=== PATIENT | female | born 1980 | race Caucasian/White ===

== ENCOUNTER 2018-08-10 21:34 | Emergency (ER) | payer OTHER, MEDICAID ==
[~2018-08-10] VITALS: Ht 167.6 cm; Wt 77.1 kg
[2018-08-10 22:24] LABS: URINE BILIRUBIN NEGATIVE (Negative); URINE BLOOD NEGATIVE (Negative); URINE CLARITY CLEAR; URINE COLOR YELLOW; URINE GLUCOSE-RANDOM NEGATIVE (Negative); URINE KETONES NEGATIVE (Negative); URINE LEUKOCYTES-REFLEX NEGATIVE (Negative); URINE NITRITE-REFLEX NEGATIVE (Negative); URINE PROTEIN NEGATIVE (Negative); URINE SPECIFIC GRAVITY >= 1.030 (1.005-1.030); URINE UROBILINOGEN 0.2 E.U./dl (0.2-1.0)
[2018-08-10] MEDS ORDERED: GABAPENTIN 100100 MG PO (22:33)
[2018-08-10 22:50] VITALS: BP 126/83
== END 2018-08-10 22:51 | disposition home or self-care (01) ==
LOC: M.ERS 21:34
PROVIDERS: Personal Emergency Response Attendant
DX: R20.2 Paresthesia of skin (principal); Z88.8 Allergy status to other drugs, medicaments and biological substances

== ENCOUNTER 2018-09-23 21:56 | Emergency (ER) | payer OTHER, MEDICAID ==
[~2018-09-23] VITALS: Ht 167.6 cm; Wt 77.1 kg
[~2018-09-23 21:56] MED LIST: GABAPENTIN 100100 MG PO
[2018-09-23] MEDS ORDERED: ZPAK PO (22:48)
[2018-09-23] MEDS ORDERED: BENZONATATE200 MG PO (22:48)
[2018-09-23 23:03] VITALS: BP 118/80
== END 2018-09-23 23:03 | disposition home or self-care (01) ==
LOC: M.ERS 21:56
DX: J40 Bronchitis, not specified as acute or chronic (principal); Z88.1 Allergy status to other antibiotic agents; N80.9 Endometriosis, unspecified; Z88.6 Allergy status to analgesic agent; Z88.7 Allergy status to serum and vaccine

== ENCOUNTER 2018-10-15 04:21 | Emergency (ER) | payer OTHER, MEDICAID ==
[~2018-10-15] VITALS: Ht 167.6 cm; Wt 90.7 kg
[~2018-10-15 04:21] MED LIST changes: +BENZONATATE200 MG PO; +ZPAK PO
[2018-10-15 04:57] LABS: ABSOLUTE BASOPHILS 0.1 thou/uL (0.0-0.2); ABSOLUTE EOSINOPHILS 0.1 thou/uL (0.0-0.7); ABSOLUTE LYMPHOCYTES 1.7 thou/uL (0.8-5.3); ABSOLUTE MONOCYTES 0.7 thou/uL (0.0-1.2); ABSOLUTE NEUTROPHILS 2.7 thou/uL (1.6-8.1); BASOPHILS 1.8 %; LYMPHOCYTES 32.9 %; MCH 18.3 pg (26.0-34.0); MCHC 30.1 g/dL (28.0-37.0); MCV 60.9 fL (80.0-100.0); MPV 8.4 fl. (7.2-11.1); NUCLEATED RBCS 0 /100WBC; PLATELET COUNT* 281 thou/uL (150-400); POLYS 50.3 %; RBC 3.16 mil/uL (4.20-5.00); RDW-CV 22.4 % (10.5-14.5); WBC 5.3 thou/uL (4.0-11.0)
[2018-10-15 05:04] LABS: HEMATOCRIT 19.2 % (37.0-47.0); HEMOGLOBIN 5.8 gm/dL (12.0-15.0)
[2018-10-15 05:09] LABS: CALCIUM 8.8 mg/dL (8.5-10.1); CREATININE 0.6 mg/dL (0.6-1.3); POTASSIUM 3.1 mmol/L (3.5-5.1)
[2018-10-15 05:20] LABS: ALBUMIN 3.7 g/dL (3.4-5.0); TOTAL BILIRUBIN 0.5 mg/dL (<0.1-1.0); TOTAL PROTEIN 7.1 g/dL (6.4-8.2)
[2018-10-15 05:34] LABS: ANISOCYTOSIS 2+; HYPOCHROMASIA 3+; MICROCYTES 3+; PLATELET ESTIMATE ADEQUATE; POLYCHROMASIA 1+
[2018-10-15] MEDS ORDERED: PREDNISONE 20 M20 M1 PO (07:42)
[2018-10-15] MEDS ORDERED: IRON325 PO (07:47)
[2018-10-15 09:47] VITALS: BP 114/71
== END 2018-10-15 09:47 | disposition home or self-care (01) ==
LOC: M.ERS 04:21
PROVIDERS: Emergency Medicine
DX: D64.9 Anemia, unspecified (principal); J40 Bronchitis, not specified as acute or chronic; M79.662 Pain in left lower leg; M79.661 Pain in right lower leg; R22.43 Localized swelling, mass and lump, lower limb, bilateral; N80.9 Endometriosis, unspecified; Z88.1 Allergy status to other antibiotic agents; Z91.018 Allergy to other foods

== ENCOUNTER 2018-12-08 09:17 | Emergency (ER) | payer OTHER ==
[~2018-12-08] VITALS: Ht 170.2 cm; Wt 81.7 kg
[~2018-12-08 09:17] MED LIST changes: +IRON325 PO; +PREDNISONE 20 M20 M1 PO
[2018-12-08 09:45] LABS: ABSOLUTE BASOPHILS 0.1 thou/uL (0.0-0.2); ABSOLUTE EOSINOPHILS 0.1 thou/uL (0.0-0.7); ABSOLUTE MONOCYTES 0.3 thou/uL (0.0-1.2); ABSOLUTE NEUTROPHILS 1.3 thou/uL (1.6-8.1); BASOPHILS 1.9 %; EOSINOPHILS 2.5 %; HEMATOCRIT 25.2 % (37.0-47.0); HEMOGLOBIN 7.7 gm/dL (12.0-15.0); LYMPHOCYTES 53.8 %; MCH 19.5 pg (26.0-34.0); MCHC 30.3 g/dL (28.0-37.0); MCV 64.4 fL (80.0-100.0); MONOCYTES 8.1 %; MPV 8.6 fl. (7.2-11.1); NUCLEATED RBCS 0 /100WBC; PLATELET COUNT* 159 thou/uL (150-400); POLYS 33.7 %; RBC 3.92 mil/uL (4.20-5.00); RDW-CV 25.7 % (10.5-14.5); WBC 3.8 thou/uL (4.0-11.0)
[2018-12-08 09:53] LABS: CALCIUM 8.4 mg/dL (8.5-10.1); CREATININE 0.6 mg/dL (0.6-1.3); POTASSIUM 3.5 mmol/L (3.5-5.1); PROTIME 10.4 Seconds (9.20-11.50)
[2018-12-08 09:57] LABS: ALBUMIN 3.5 g/dL (3.4-5.0); TOTAL BILIRUBIN 0.4 mg/dL (<0.1-1.0)
[2018-12-08] MEDS ORDERED: IRON325 PO (10:07)
[2018-12-08] MEDS ORDERED: PROVERA10 MG PO (10:07)
[2018-12-08 10:15] VITALS: BP 116/74
[2018-12-08 10:38] LABS: PLATELET ESTIMATE ADEQUATE
[2018-12-08 10:39] LABS: ANISOCYTOSIS 1+; HYPOCHROMASIA 2+; MICROCYTES 2+; POIKILOCYTOSIS 2+
== END 2018-12-08 10:16 | disposition home or self-care (01) ==
LOC: M.ERS 09:17
PROVIDERS: Family Medicine
DX: N93.9 Abnormal uterine and vaginal bleeding, unspecified (principal); D64.9 Anemia, unspecified; N80.9 Endometriosis, unspecified; Z88.8 Allergy status to other drugs, medicaments and biological substances; Z86.2 Personal history of diseases of the blood and blood-forming organs and certain disorders involving the immune mechanism